=== PATIENT | female | born 1975 | race Caucasian/White ===

== ENCOUNTER 2024-07-22 09:15 | Outpatient (RCR) | payer MEDICAID, SELFPAY ==
--- NOTE | 2024-07-22 09:34 | PT.OIERPT ---
PT OP Initial Eval Patient Information Outpatient Physical Therapy Treatment Date: 07/22/24 Visit Reasons: LOW BACK PAIN Medical Diagnosis: LBP Treatment Dx #1: LBP Start of Care: 07/22/24 Date of Onset: 5 yrs ago Smoking Status Smoking Status: Never smoker Initial Assessment Subjective: Pt is 48 yr old female who reports long Hx of LBP with pain radiating down the LE's into the glutes and calf mm's. Increased pain with lifting and sitting. Pt cleans houses for work. PMH: gastric bypass, hysterectomy Imaging: provider Pt goal: to get an MRI Objective: Trunk ArOM: ? B SB 50% of normal with pain ? Extension: 20% with pain around L4-5, L5-S1 ? Flexion: 10 from floor with LBP ? B rotation: 60% with pain ? TTP: moderate paraspinals L5-S1 ? Assessment: Pt presents with trunk flexion sensitivity and overlying myofascial pain ? and TTP of lumbar paraspinals consistent with lower lumbar disc bulge(s) with radiculopathy and possibly facet joint pain. Pt requires skilled therapy in order to decrease ? pain and improve sitting/standing tolerance and has fair rehab potential. Eval ?followed by HEP printout. Short Term and [employer] Goals 1. Ind with HEP ? 2. Improved sitting/standing tolerance to 30 minutes with <=4/10 LBP ? 3. Decreased lower paraspinal TTP from mod to min 4. Improved HH chore tolerance to at least 45 minutes with <=3/10 LBP and no ?increase in LE ssx ? Treatment Plan 1. Manual therapy ? 2. Therex ? 3. Modalities as indicated, moist heat, ice, estim, mechanical traction Frequency and Duration: 1-2x a week for 12 visits Certification Dates: 07/26/24 to 10/24/24 Procedure Charges OP PT Eval Mod Complex 30 minutes: Yes
== END 2024-08-07 23:59 | disposition home or self-care (01) ==
LOC: CPTX 09:15
PROVIDERS: PCP Nurse Practitioner Family; Referring Provider Nurse Practitioner Family; Visit Provider Nurse Practitioner Family
DX: M54.50 Low back pain, unspecified (principal)
CPT/HCPCS: 97162

== ENCOUNTER 2024-09-21 09:47 | Outpatient (RCR) | payer MEDICAID, SELFPAY ==
--- NOTE | 2024-09-21 18:57 | PT.ODAYNRPT ---
PT Outpatient Daily Note OP Daily Note Outpatient Physical Therapy Treatment Date: 09/21/24 Visit Reasons: Low back pain Subjective: Same as time of evaluation Objective: See F/S for therex Assessment: Good response to MHP to lessen LBP Plan: Continue per POC Length of Time (minutes) of Treatment: 30 Minutes Procedure Charges Therapeutic Exercise 30 minutes: Yes
== END 2024-10-07 23:59 | disposition home or self-care (01) ==
LOC: CPTX 09:47
PROVIDERS: PCP Nurse Practitioner Family; Referring Provider Nurse Practitioner Family; Visit Provider Nurse Practitioner Family
DX: M54.50 Low back pain, unspecified (principal); M79.669 Pain in unspecified lower leg
CPT/HCPCS: 97110